=== PATIENT | male | born 1995 | race Caucasian/White ===

== ENCOUNTER 2020-10-25 08:29 | Emergency (ER) | payer SELFPAY ==
[2020-10-25 08:37] VITALS: BP 131/83; PULSE 71; TEMP 98.5; BMI 32.6
[2020-10-25 09:36] LABS: BASO % 0.5 % (0-2.0); EOS % 0.6 % (0-4.5); HEMATOCRIT 47.7 % (35.4-49); MCH 27.8 pg (25.7-33.7); MCHC 33.7 g/dl (32.0-35.9); MEAN CELL VOLUME 82.5 fl (80-96); MEAN PLT VOLUME 8.5 fl (7.5-11.1); MONO % 6.9 % (3.8-10.2); PLATELET COUNT 210 10^3/uL (134-434); RBC 5.78 M/mm3 (4.00-5.60); RDW 13.2 % (11.9-15.9); WHITE BLOOD COUNT 6.9 K/mm3 (4.0-10.0)
[2020-10-25 09:58] LABS: ALBUMIN 4.4 g/dl (3.4-5.0); BLOOD UREA NITROGEN 17.5 mg/dL (7-18); CALCIUM 9.4 mg/dL (8.5-10.1)
[2020-10-25 10:03] LABS: BILIRUBIN,TOTAL 0.5 mg/dL (0.2-1); TOT PROT 7.8 g/dl (6.4-8.2)
== END 2020-10-25 14:10 | disposition home or self-care (01) ==
LOC: JERFT 08:29
DX: R10.31 Right lower quadrant pain (principal)
CPT/HCPCS: 36415; 74177-TC; 76705-TC; 80053; 83605; 83690; 85025; 99285-25; C1887; Q9967